=== PATIENT | female | born 2005 | race Caucasian/White ===

== ENCOUNTER 2024-06-24 02:56 | Outpatient (CLI) | payer BC, SELFPAY ==
[2024-06-24 03:44] VITALS: BP 129/65; PULSE 84; RESP 16; TEMP 36.7; O2SAT 98
--- NOTE | 2024-06-24 03:57 | OB.TRI.HP_ITS ---
HPI - General General Date of Service: 06/24/24 HPI Narrative TREY ROSALES, is a 18 F @ 39.5 weeks who presents c/o contractions. has PNC in [facility]. reports last visit was last week - had membrane sweep and was 2cm. pt reports no vaginal bleeding or LOF. pt reports has done all PN testing and passed Glucose test etc. pt reports no issues with BPs or other concerns during . pt reports is moving to [place] and has not decided which group she wanted to change care to. Her mother who is in the room states they tried to have labs/office notes transferred here as she works at hospital. Maternal Data Information Final PEDRO: 06/26/24 Gestational age: 39.5 PFSH PFSH Home Medications ?Medication ?Instructions ?Recorded ?Last Taken ?Type [id number] 1 mg 1 tab PO DAILY supple ment 06/24/24 06/23/24 17:00 History tablet Allergy/AdvReac Type Severity Reaction Status Date / Time No Known Allergies Allergy Verified 06/24/24 03:57 Physical Exam Narrative VE: 1.5/90/-1 abd: soft, gravid, non tender to palpation Const alert and oriented x3 General Appearance: cooperative HEENT normocephalic GI GI Narrative: Gravid, non tender to palpation. OB / External & Speculum: external exam normal Extremity normal to inspection Skin no rashes or lesions noted Neuro oriented x3 and CN's II-XII intact bilaterally Psych Appearance: grossly normal NST FHR Rate Baby A Baseline: 135 Variability:: Moderate Accelerations:: 15 x 15 Decelerations:: None NST Reactive:: Yes FHR Category:: Category I Uterine Activity:: 1-2 min Assessment & Plan (1) with care elsewhere in third trimester: (2) Supervision of normal first teen in third trimester: (3) 39 weeks gestation of : PLAN: Plan @ 39 weeks with contractions- R/o labor 1) recheck cervix 2 hours - if making cervical change will keep for labor 2) well being established 3) will try to locate PN records
[2024-06-24] MEDS: Lactated Ringers 1,000 ML 999 ML IV (06:15)
[2024-06-24 06:21] VITALS: BMI 35.5
[2024-06-24 07:34] VITALS: BP 129/73; PULSE 88; RESP 16; TEMP 36.9; O2SAT 98
[2024-06-24] MEDS: Acetaminophen 500 MG Tablet 1000 MG PO (07:42)
== END 2024-06-24 08:30 | disposition home or self-care (01) ==
LOC: WPOUT 03:00 → WP 03:02
PROVIDERS: Visit Provider Obstetrics & Gynecology
DX: O47.1 False labor at or after 37 completed weeks of gestation (principal); Z3A.39 39 weeks gestation of pregnancy
CPT/HCPCS: 96360; 59025; 59050; 99221; G0378